=== PATIENT | female | born 1950 | race Caucasian/White ===

== ENCOUNTER → 2017-12-10 | Outpatient (CLI) | payer OTHER ==
[2017-01-28 20:16] VITALS: BP 130/62
[~2017-12-10] MED LIST: HYDR25TA9 PO; MECL25TA3 PO
--- NOTE | 2017-12-12 16:21 | RAD ---
DATE: December 10, 2017 EXAM: MAMMO LU SCREENING BILATERAL HISTORY: Screening study. COMPARISON: 2016 This study was interpreted with the benefit of Computerized Aided Detection (CAD). 2-D digital mammographic views of both breasts were performed in the CC and MLO projections. 3-D digital tomosynthesis images of both breasts were performed in the CC and MLO projections and reviewed on a computer workstation. FINDINGS: Breast Density: FATTY The breast parenchyma is primarily fatty replaced. Breast parenchyma level density A.. There are no dominant suspicious masses, suspicious microcalcifications or evidence of architectural distortion. IMPRESSION: No mammographic indicators for malignancy. BI-RADS CATEGORY: 1 NEGATIVE RECOMMENDED FOLLOW-UP: 12M 12 MONTH FOLLOW-UP PQRS compliance statement: Patient information was entered into a reminder system with a target due date December 11, 2018 for the next mammogram. Mammography is a sensitive method for finding small breast cancers, but it does not detect them all and is not a substitute for careful clinical examination. A negative mammogram does not negate a clinically suspicious finding and should not result in delay in biopsying a clinically suspicious abnormality. "Our facility is accredited by the [employer] Mammography Program." The patient's breast density may affect the ability of mammography to detect breast cancer. There are 4 categories of breast density, A, B, C and D. Breast density A means that most of the breast tissue is replaced with adipose tissue and therefore is not dense. Breast density B means that the breast tissue is mildly dense and scattered. Breast density C means that the breast tissue is heterogeneously dense. Breast density D means that the breast tissue is very dense. Breast densities especially C and D may decrease the sensitivity of mammography to detect breast cancer. Therefore, the patient may benefit from 3-D breast mammography (3D breast tomography) as a part of their screening mammogram. Insurance may or may not pay for this additional imaging. The patient's breast density based on today's mammogram is category A.
== END | disposition home or self-care (01) ==
LOC: MAMMO 08:30
PROVIDERS: ATTEND Internal Medicine
DX: Z12.31 Encounter for screening mammogram for malignant neoplasm of breast (principal); I10 Essential (primary) hypertension; Z86.73 Personal history of transient ischemic attack (TIA), and cerebral infarction without residual deficits; Z90.710 Acquired absence of both cervix and uterus
CPT/HCPCS: 77063; 77067

== ENCOUNTER 2018-06-04 12:33 | Inpatient (IN) | payer OTHER ==
[~2018-06-04] VITALS: Ht 152.4 cm; Wt 79.9 kg
[~2018-06-04 12:33] MED LIST changes: +HYDR-2145 PO; -HYDR25TA9 PO
[2018-06-04] MEDS ORDERED: ASPIRIN CHEWABLE 81 MG TABLET. PO ONE (13:15)
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
[2018-06-04 13:50] LABS: BASO % 1 % (0-3); EOS # 0.1 x10^3/uL (0.0-0.7); EOS % 2 % (0-3); HEMOGLOBIN 14.2 g/dL (12.0-15.5); LYMPH # 2.3 x10^3/uL (1.0-4.8); LYMPH % 31 % (24-48); MEAN CORPUSCULAR HEMOGLOBIN 31 pg (25-35); MEAN CORPUSCULAR HGB CONC 33 g/dL (31-37); MEAN CORPUSCULAR VOLUME 93 fL (79-100); MONO # 0.5 x10^3/uL (0.0-1.1); MONO % 7 % (0-9); NEUT # 4.4 x10^3uL (1.8-7.7); NEUT % 60 % (31-73); PLATELET COUNT 192 x10^3/uL (140-400); RED BLOOD COUNT 4.62 x10^6/uL (3.50-5.40); RED CELL DISTRIBUTION WIDTH 12.5 % (11.5-14.5); WHITE BLOOD COUNT 7.4 x10^3/uL (4.0-11.0)
[2018-06-04 13:59] LABS: CALCIUM 9.1 mg/dL (8.5-10.1); CREATININE 0.7 mg/dL (0.6-1.0); GFR 82.7; POTASSIUM 3.7 mmol/L (3.5-5.1)
[2018-06-04 14:02] LABS: PROTHROMBIN TIME PATIENT 13.3 SEC (11.7-14.0)
--- NOTE | 2018-06-04 14:03 | RAD ---
AP chest. HISTORY: Chest pain AP view was taken of the chest. Lungs are clear. There is no pneumothorax or pleural effusion. There is mild scoliosis. Heart is normal in size. IMPRESSION: 1. No acute infiltrates. Electronically signed by: Castro Kohli MD (06/04/2018 1:59 PM) [facility]
[2018-06-04 14:04] LABS: ALBUMIN/GLOBULIN RATIO 1.1 (1.0-1.7); MAGNESIUM 1.7 mg/dL (1.8-2.4); TOTAL BILIRUBIN 0.4 mg/dL (0.2-1.0); TOTAL PROTEIN 7.5 g/dL (6.4-8.2)
[2018-06-04] MEDS ORDERED: HEPARIN 25,000UTS/500ML PREMIX 500 ML IV PRN (14:15)
[2018-06-04] MEDS ORDERED: NITROGLYCERIN OINT 1 GM PACKET. TP ONE (14:15)
[2018-06-04] MEDS: HEPARIN for IV BOLUS 10,000 UNIT/10 ML VIAL. IV PRN ×2 (14:40→21:59)
[2018-06-04] MEDS ORDERED: IV NORMAL SALINE 1000ML BAG 1,000 ML IV SCH (14:57)
[2018-06-04] MEDS ORDERED: ONDANSETRON PF 4 MG/2 ML VIAL. IV PRN (15:00)
[2018-06-04] MEDS ORDERED: NITROGLYCERIN SUBLINGUAL 0.4 MG BOTTLE OF 25. SL PRN (15:00)
[2018-06-04] MEDS ORDERED: ACETAMINOPHEN 325 MG TABLET. PO PRN (15:00)
[2018-06-04] MEDS ORDERED: MORPHINE SULFATE 2 MG/ML VIAL. IV PRN (15:00)
[2018-06-04 15:21] VITALS: BP 167/84
[2018-06-04] MEDS ORDERED: METF100010 PO (16:35)
[2018-06-04] MEDS ORDERED: AMOX1TAB61 PO (16:35)
[2018-06-04] MEDS ORDERED: PRAV20TA2 PO (16:35)
[2018-06-04] MEDS ORDERED: LOSA1TAB22 PO (16:35)
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
[2018-06-04] MEDS ORDERED: DEXTROSE 50% 25 GM / 50ML DISP.SYRIN. IV PRN (16:45)
[2018-06-04] MEDS: INSULIN LISPRO 300 UNITS/3 ML INSULN.PEN. SQ SCH (17:00)
[2018-06-04] MEDS: LOSARTAN POTASSIUM 50 MG TABLET. PO SCH (17:00)
[2018-06-04] MEDS: hydroCHLOROthiazide 25 MG TABLET PO SCH (17:00)
--- NOTE | 2018-06-04 18:22 | EKG ---
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
[2018-06-04 19:16] VITALS: BP 138/73
[2018-06-04] MEDS: METOPROLOL TART IMMED RELEASE 25 MG TABLET. PO SCH (21:00)
[2018-06-04] MEDS: ATORVASTATIN CALCIUM 40 MG TABLET. PO SCH (21:00)
[2018-06-04] MEDS ORDERED: NON FORMULARY ITEM (Pravastatin Sodium 20 MG) PO SCH (21:00)
[2018-06-04] MEDS: AMOXICILLIN/K CLAV 875/125MG TABLET. PO SCH (21:00)
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
[2018-06-04 23:20] VITALS: BP 107/54
[2018-06-05] VITALS (13 sets, daily range): BP systolic 105–145; BP diastolic 52–72
--- NOTE | 2018-06-05 00:03 | EKG ---
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
--- NOTE | 2018-06-05 04:20 | NUR ---
I have reviewed the notes, assessment, and/or procedures performed by Gabi denney and concur with her documentation unless otherwise noted.
[2018-06-05 06:40] LABS: HEMATOCRIT 40.2 % (36.0-47.0); HEMOGLOBIN 13.1 g/dL (12.0-15.5); RED BLOOD COUNT 4.32 x10^6/uL (3.50-5.40); RED CELL DISTRIBUTION WIDTH 12.4 % (11.5-14.5); WHITE BLOOD COUNT 6.4 x10^3/uL (4.0-11.0)
[2018-06-05 07:04] LABS: CHOLESTEROL/HDL RATIO 4.2
--- NOTE | 2018-06-05 07:07 | EKG ---
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
[2018-06-05] MEDS: INSULIN LISPRO 300 UNITS/3 ML INSULN.PEN. SQ SCH ×3 (08:00→17:00)
[2018-06-05] MEDS: hydroCHLOROthiazide 25 MG TABLET PO SCH (08:04)
[2018-06-05] MEDS: AMOXICILLIN/K CLAV 875/125MG TABLET. PO SCH ×3 (08:05→21:22)
[2018-06-05] MEDS: LOSARTAN POTASSIUM 50 MG TABLET. PO SCH (08:07)
[2018-06-05] MEDS: METOPROLOL TART IMMED RELEASE 25 MG TABLET. PO SCH ×2 (08:08→21:23)
[2018-06-05] MEDS ORDERED: ANTI-COAG MONITOR BY PHARMACY. MC PRN (08:30)
[2018-06-05] MEDS ORDERED: NON FORMULARY ITEM (Losartan/Hydrochlorothiazide (Losartan-Hctz 100-25 Mg Tab) 1 TAB) PO SCH (09:00)
[2018-06-05] MEDS ORDERED: ONDANSETRON PF 4 MG/2 ML VIAL. IV PRN (09:15)
[2018-06-05] MEDS ORDERED: ACETAMINOPHEN 500 MG TABLET PO PRN (09:15)
--- NOTE | 2018-06-05 10:40 | PDOC ---
PROGRESS NOTES Chief Complaint Chief Complaint 1. Non-STEMI in the setting of severe stress: Differential diagnosis is stress- induced cardio myopathy versus plaque rupture due to underlying coronary disease History of Present Illness History of Present Illness NO Chest pain Multiple family members at bedside Plan for [facility] later in the morning No RN issues Trop peaks 0.9 ., normal VS Plan: await [facility] Vitals Vitals Vital Signs Date Time Temp Pulse Resp B/P (MAP) Pulse Ox O2 Delivery O2 Flow Rate FiO2 06/05/18 08:08 72 06/05/18 07:00 98.1 16 120/57 (78) 96 Room Air 98.1 Physical Exam General: Alert, Oriented X3, Cooperative, No acute distress Heart: Regular rate, Normal S1, Normal S2, No murmurs Lungs: Clear Abdomen: Normal bowel sounds, Soft, No tenderness Extremities: No clubbing, No cyanosis, No edema Skin: No rashes, No breakdown, No significant lesion Labs LABS Laboratory Tests Test 06/04/18 13:40 06/04/18 14:47 06/04/18 17:03 06/04/18 18:00 White Blood Count 7.4 x10^3/uL (4.0-11.0) Red Blood Count 4.62 x10^6/uL (3.50-5.40) Hemoglobin 14.2 g/dL (12.0-15.5) Hematocrit 43.0 % (36.0-47.0) Mean Corpuscular Volume 93 fL (79-100) Mean Corpuscular Hemoglobin 31 pg (25-35) Mean Corpuscular Hemoglobin Concent 33 g/dL (31-37) Red Cell Distribution Width 12.5 % (11.5-14.5) Platelet Count 192 x10^3/uL (140-400) Neutrophils (%) (Auto) 60 % (31-73) Lymphocytes (%) (Auto) 31 % (24-48) Monocytes (%) (Auto) 7 % (0-9) Eosinophils (%) (Auto) 2 % (0-3) Basophils (%) (Auto) 1 % (0-3) Neutrophils # (Auto) 4.4 x10^3uL (1.8-7.7) Lymphocytes # (Auto) 2.3 x10^3/uL (1.0-4.8) Monocytes # (Auto) 0.5 x10^3/uL (0.0-1.1) Eosinophils # (Auto) 0.1 x10^3/uL (0.0-0.7) Basophils # (Auto) 0.0 x10^3/uL (0.0-0.2) Prothrombin Time 13.3 SEC (11.7-14.0) Prothromb Time International Ratio 1.0 (0.8-1.1) Sodium Level 143 mmol/L (136-145) Potassium Level 3.7 mmol/L (3.5-5.1) Chloride Level 103 mmol/L (98-107) Carbon Dioxide Level 28 mmol/L (21-32) Anion Gap 12 (6-14) Blood Urea Nitrogen 17 mg/dL (7-20) Creatinine 0.7 mg/dL (0.6-1.0) Estimated GFR (Cockcroft-Gault) 82.7 BUN/Creatinine Ratio 24 (6-20) Glucose Level 99 mg/dL (70-99) Calcium Level 9.1 mg/dL (8.5-10.1) Magnesium Level 1.7 mg/dL (1.8-2.4) Total Bilirubin 0.4 mg/dL (0.2-1.0) Aspartate Amino Transf (AST/SGOT) 25 U/L (15-37) Alanine Aminotransferase (ALT/SGPT) 37 U/L (14-59) Alkaline Phosphatase 47 U/L (46-116) Troponin I Quantitative 1.108 ng/mL (0.000-0.055) 1.142 ng/mL (0.000-0.055) RO-Khh-Y-Type Natriuretic Peptide 1026 pg/mL (0-124) Total Protein 7.5 g/dL (6.4-8.2) Albumin 4.0 g/dL (3.4-5.0) Albumin/Globulin Ratio 1.1 (1.0-1.7) Glucose (Fingerstick) 93 mg/dL (70-99) 190 mg/dL (70-99) Test 06/04/18 20:40 06/04/18 20:50 06/05/18 00:10 06/05/18 06:15 Heparin Anti-Xa Act, Unfractionated 0.10 IU/mL (0.30-0.70) 0.22 IU/mL (0.30-0.70) Glucose (Fingerstick) 165 mg/dL (70-99) Troponin I Quantitative 0.938 ng/mL (0.000-0.055) 0.736 ng/mL (0.000-0.055) White Blood Count 6.4 x10^3/uL (4.0-11.0) Red Blood Count 4.32 x10^6/uL (3.50-5.40) Hemoglobin 13.1 g/dL (12.0-15.5) Hematocrit 40.2 % (36.0-47.0) Mean Corpuscular Volume 93 fL (79-100) Mean Corpuscular Hemoglobin 30 pg (25-35) Mean Corpuscular Hemoglobin Concent 33 g/dL (31-37) Red Cell Distribution Width 12.4 % (11.5-14.5) Platelet Count 175 x10^3/uL (140-400) Triglycerides Level 131 mg/dL (0-150) Cholesterol Level 175 mg/dL (0-200) LDL Cholesterol, Calculated 107 mg/dL (0-100) VLDL Cholesterol, Calculated 26 mg/dL (0-40) Non-HDL Cholesterol Calculated 133 mg/dL (0-129) HDL Cholesterol 42 mg/dL (40-60) Cholesterol/HDL Ratio 4.2 Test 06/05/18 07:53 Glucose (Fingerstick) 139 mg/dL (70-99) Review of Systems Review of Systems A 14 point ROS was completed with the following noted as positive: Other systems reviewed and negative. \CONSTITUTIONAL: No fever or chills EYES: No recent changes SKIN: No rash or itching CARDIOVASCULAR: No chest pain, syncope, palpitations, or edema RESPIRATORY: No SOB or cough GASTROINTESTINAL: No nausea, vomiting or abdominal pain NEUROLOGICAL: No headaches or weakness ENDOCRINE: No cold or heat intolerance GENITOURINARY: No urgency or frequency of urination MUSCULOSKELETAL: No back pain or joint pain LYMPHATICS: No enlarged lymph nodes PSYCHIATRIC: No anxiety or depression Assessment and Plan Assessmemt and Plan Problems Medical Problems: (1) Non-STEMI (non-ST elevated myocardial infarction) Status: Acute Comment Review of Relevant I have reviewed the following items dieter (where applicable) has been applied. Labs Laboratory Tests Test 06/04/18 13:40 06/04/18 14:47 06/04/18 17:03 06/04/18 18:00 White Blood Count 7.4 x10^3/uL (4.0-11.0) Red Blood Count 4.62 x10^6/uL (3.50-5.40) Hemoglobin 14.2 g/dL (12.0-15.5) Hematocrit 43.0 % (36.0-47.0) Mean Corpuscular Volume 93 fL (79-100) Mean Corpuscular Hemoglobin 31 pg (25-35) Mean Corpuscular Hemoglobin Concent 33 g/dL (31-37) Red Cell Distribution Width 12.5 % (11.5-14.5) Platelet Count 192 x10^3/uL (140-400) Neutrophils (%) (Auto) 60 % (31-73) Lymphocytes (%) (Auto) 31 % (24-48) Monocytes (%) (Auto) 7 % (0-9) Eosinophils (%) (Auto) 2 % (0-3) Basophils (%) (Auto) 1 % (0-3) Neutrophils # (Auto) 4.4 x10^3uL (1.8-7.7) Lymphocytes # (Auto) 2.3 x10^3/uL (1.0-4.8) Monocytes # (Auto) 0.5 x10^3/uL (0.0-1.1) Eosinophils # (Auto) 0.1 x10^3/uL (0.0-0.7) Basophils # (Auto) 0.0 x10^3/uL (0.0-0.2) Prothrombin Time 13.3 SEC (11.7-14.0) Prothromb Time International Ratio 1.0 (0.8-1.1) Sodium Level 143 mmol/L (136-145) Potassium Level 3.7 mmol/L (3.5-5.1) Chloride Level 103 mmol/L (98-107) Carbon Dioxide Level 28 mmol/L (21-32) Anion Gap 12 (6-14) Blood Urea Nitrogen 17 mg/dL (7-20) Creatinine 0.7 mg/dL (0.6-1.0) Estimated GFR (Cockcroft-Gault) 82.7 BUN/Creatinine Ratio 24 (6-20) Glucose Level 99 mg/dL (70-99) Calcium Level 9.1 mg/dL (8.5-10.1) Magnesium Level 1.7 mg/dL (1.8-2.4) Total Bilirubin 0.4 mg/dL (0.2-1.0) Aspartate Amino Transf (AST/SGOT) 25 U/L (15-37) Alanine Aminotransferase (ALT/SGPT) 37 U/L (14-59) Alkaline Phosphatase 47 U/L (46-116) Troponin I Quantitative 1.108 ng/mL (0.000-0.055) 1.142 ng/mL (0.000-0.055) IA-Sxj-M-Type Natriuretic Peptide 1026 pg/mL (0-124) Total Protein 7.5 g/dL (6.4-8.2) Albumin 4.0 g/dL (3.4-5.0) Albumin/Globulin Ratio 1.1 (1.0-1.7) Glucose (Fingerstick) 93 mg/dL (70-99) 190 mg/dL (70-99) Test 06/04/18 20:40 06/04/18 20:50 06/05/18 00:10 06/05/18 06:15 Heparin Anti-Xa Act, Unfractionated 0.10 IU/mL (0.30-0.70) 0.22 IU/mL (0.30-0.70) Glucose (Fingerstick) 165 mg/dL (70-99) Troponin I Quantitative 0.938 ng/mL (0.000-0.055) 0.736 ng/mL (0.000-0.055) White Blood Count 6.4 x10^3/uL (4.0-11.0) Red Blood Count 4.32 x10^6/uL (3.50-5.40) Hemoglobin 13.1 g/dL (12.0-15.5) Hematocrit 40.2 % (36.0-47.0) Mean Corpuscular Volume 93 fL (79-100) Mean Corpuscular Hemoglobin 30 pg (25-35) Mean Corpuscular Hemoglobin Concent 33 g/dL (31-37) Red Cell Distribution Width 12.4 % (11.5-14.5) Platelet Count 175 x10^3/uL (140-400) Triglycerides Level 131 mg/dL (0-150) Cholesterol Level 175 mg/dL (0-200) LDL Cholesterol, Calculated 107 mg/dL (0-100) VLDL Cholesterol, Calculated 26 mg/dL (0-40) Non-HDL Cholesterol Calculated 133 mg/dL (0-129) HDL Cholesterol 42 mg/dL (40-60) Cholesterol/HDL Ratio 4.2 Test 06/05/18 07:53 Glucose (Fingerstick) 139 mg/dL (70-99) Laboratory Tests Test 06/04/18 13:40 06/04/18 14:47 06/04/18 17:03 06/04/18 18:00 White Blood Count 7.4 x10^3/uL (4.0-11.0) Red Blood Count 4.62 x10^6/uL (3.50-5.40) Hemoglobin 14.2 g/dL (12.0-15.5) Hematocrit 43.0 % (36.0-47.0) Mean Corpuscular Volume 93 fL (79-100) Mean Corpuscular Hemoglobin 31 pg (25-35) Mean Corpuscular Hemoglobin Concent 33 g/dL (31-37) Red Cell Distribution Width 12.5 % (11.5-14.5) Platelet Count 192 x10^3/uL (140-400) Neutrophils (%) (Auto) 60 % (31-73) Lymphocytes (%) (Auto) 31 % (24-48) Monocytes (%) (Auto) 7 % (0-9) Eosinophils (%) (Auto) 2 % (0-3) Basophils (%) (Auto) 1 % (0-3) Neutrophils # (Auto) 4.4 x10^3uL (1.8-7.7) Lymphocytes # (Auto) 2.3 x10^3/uL (1.0-4.8) Monocytes # (Auto) 0.5 x10^3/uL (0.0-1.1) Eosinophils # (Auto) 0.1 x10^3/uL (0.0-0.7) Basophils # (Auto) 0.0 x10^3/uL (0.0-0.2) Prothrombin Time 13.3 SEC (11.7-14.0) Prothromb Time International Ratio 1.0 (0.8-1.1) Sodium Level 143 mmol/L (136-145) Potassium Level 3.7 mmol/L (3.5-5.1) Chloride Level 103 mmol/L (98-107) Carbon Dioxide Level 28 mmol/L (21-32) Anion Gap 12 (6-14) Blood Urea Nitrogen 17 mg/dL (7-20) Creatinine 0.7 mg/dL (0.6-1.0) Estimated GFR (Cockcroft-Gault) 82.7 BUN/Creatinine Ratio 24 (6-20) Glucose Level 99 mg/dL (70-99) Calcium Level 9.1 mg/dL (8.5-10.1) Magnesium Level 1.7 mg/dL (1.8-2.4) Total Bilirubin 0.4 mg/dL (0.2-1.0) Aspartate Amino Transf (AST/SGOT) 25 U/L (15-37) Alanine Aminotransferase (ALT/SGPT) 37 U/L (14-59) Alkaline Phosphatase 47 U/L (46-116) Troponin I Quantitative 1.108 ng/mL (0.000-0.055) 1.142 ng/mL (0.000-0.055) HD-Mqa-R-Type Natriuretic Peptide 1026 pg/mL (0-124) Total Protein 7.5 g/dL (6.4-8.2) Albumin 4.0 g/dL (3.4-5.0) Albumin/Globulin Ratio 1.1 (1.0-1.7) Glucose (Fingerstick) 93 mg/dL (70-99) 190 mg/dL (70-99) Test 06/04/18 20:40 06/04/18 20:50 06/05/18 00:10 06/05/18 06:15 Heparin Anti-Xa Act, Unfractionated 0.10 IU/mL (0.30-0.70) 0.22 IU/mL (0.30-0.70) Glucose (Fingerstick) 165 mg/dL (70-99) Troponin I Quantitative 0.938 ng/mL (0.000-0.055) 0.736 ng/mL (0.000-0.055) White Blood Count 6.4 x10^3/uL (4.0-11.0) Red Blood Count 4.32 x10^6/uL (3.50-5.40) Hemoglobin 13.1 g/dL (12.0-15.5) Hematocrit 40.2 % (36.0-47.0) Mean Corpuscular Volume 93 fL (79-100) Mean Corpuscular Hemoglobin 30 pg (25-35) Mean Corpuscular Hemoglobin Concent 33 g/dL (31-37) Red Cell Distribution Width 12.4 % (11.5-14.5) Platelet Count 175 x10^3/uL (140-400) Triglycerides Level 131 mg/dL (0-150) Cholesterol Level 175 mg/dL (0-200) LDL Cholesterol, Calculated 107 mg/dL (0-100) VLDL Cholesterol, Calculated 26 mg/dL (0-40) Non-HDL Cholesterol Calculated 133 mg/dL (0-129) HDL Cholesterol 42 mg/dL (40-60) Cholesterol/HDL Ratio 4.2 Test 06/05/18 07:53 Glucose (Fingerstick) 139 mg/dL (70-99) Medications Current Medications Aspirin (Children'S Aspirin) 324 mg 1X ONCE PO Last administered on 06/04/18at 14:07; Start 06/04/18 at 13:15; Stop 06/04/18 at 13:18; Status DC Heparin Sodium/ Dextrose 500 ml @ 19.3 mls/hr CONT PRN IV SEE I/O RECORD Last administered on 06/04/18at 14:42; Start 06/04/18 at 14:15 Heparin Sodium (Porcine) (Heparin Sodium) 2,000 unit PRN Q6HRS PRN IV FOR UFH LEVEL LESS THAN 0.2 Last administered on 06/04/18at 21:59; Start 06/04/18 at 14: 15 Nitroglycerin (Nitro-Bid Oint) 1 inch 1X ONCE TP ; Start 06/04/18 at 14:15; Stop 06/04/18 at 14:18; Status DC Ondansetron HCl (Zofran) 4 mg PRN Q8HRS PRN IV NAUSEA/VOMITING; Start 06/04/18 at 15:00; Stop 06/05/18 at 09:14; Status DC Morphine Sulfate (Morphine Sulfate) 2 mg PRN Q2HR PRN IV PAIN; Start 06/04/18 at 15:00; Stop 06/05/18 at 14:59 Sodium Chloride 1,000 ml @ 100 mls/hr Q10H IV ; Start 06/04/18 at 14:57; Stop 06/04/18 at 16:28; Status DC Acetaminophen (Tylenol) 650 mg PRN Q4HRS PRN PO FEVER Last administered on 06/05at 10:28; Start 06/04/18 at 15:00; Stop 06/05/18 at 14:59 Nitroglycerin (Nitrostat) 0.4 mg PRN Q5MIN PRN SL CHEST PAIN; Start 06/04/18 at 15:00; Stop 06/05/18 at 14:59 Atorvastatin Calcium (Lipitor) 40 mg QHS PO Last administered on 06/04/18at 21: 00; Start 06/04/18 at 21:00 Metoprolol Tartrate (Lopressor) 25 mg BID PO Last administered on 06/05/18at 08: 08; Start 06/04/18 at 21:00 Insulin Human Lispro (HumaLOG) 0-5 UNITS TIDWMEALS SQ ; Start 06/04/18 at 17:00 Dextrose (Dextrose 50%-Water Syringe) 12.5 gm PRN Q15MIN PRN IV SEE COMMENTS; Start 06/04/18 at 16:45 Amoxicillin/ Clavulanate Potassium (Augmentin 875/ 125mg) 1 tab BID PO Last administered on 06/04/18at 21:00; Start 06/04/18 at 21:00 Non-Formulary Medication (Losartan/ Hydrochlorothiazide (Losartan-Hctz 100-25 Mg Tab)) 1 tab DAILY PO ; Start 06/05/18 at 09:00; Status UNV Non-Formulary Medication (Pravastatin Sodium ) 20 mg HS PO ; Start 06/04/18 at 21:00; Status UNV Losartan Potassium (Cozaar) 100 mg DAILY PO Last administered on 06/05/18at 08: 07; Start 06/04/18 at 17:00 Hydrochlorothiazide (Hydrodiuril) 25 mg DAILY PO Last administered on at 08:04; Start 06/04/18 at 17:00 Info (Anti-Coagulation Monitoring By Pharmacy) 1 each PRN DAILY PRN MC SEE COMMENTS; Start 06/05/18 at 08:30 Ondansetron HCl (Zofran) 4 mg PRN Q6HRS PRN IV NAUSEA/VOMITING; Start 06/05/18 at 09:15 Acetaminophen (Tylenol) 500 mg PRN Q6HRS PRN PO MILD PAIN / TEMP; Start at 09:15 Active Scripts Active Reported Augmentin 875-125 Tablet (Amoxicillin/Potassium Clav) 1 Each Tablet 1 Tab PO BID Pravastatin Sodium 20 Mg Tablet 20 Mg PO HS Metformin Hcl Er (Metformin Hcl) 1,000 Mg Tab.er.24 1,000 Mg PO BIDWMEALS Losartan-Hctz 100-25 Mg Tab (Losartan/Hydrochlorothiazide) 1 Each Tablet 1 Tab PO DAILY Vitals/I & O Vital Sign - Last 24 Hours 06/04/18 06/04/18 06/04/18 06/04/18 12:33 13:00 13:30 14:00 Temp 98.2 98.2 Pulse 66 72 76 72 Resp 12 14 27 23 B/P (MAP) 160/89 (112) 160/89 (112) 124/85 (98) 125/63 (83) Pulse Ox 99 99 98 98 O2 Delivery Room Air Room Air Room Air Room Air 06/04/18 06/04/18 06/04/18 06/04/18 14:45 15:21 16:19 19:16 Temp 97.8 98.0 97.8 98.0 Pulse 74 20 80 Resp 26 18 20 B/P (MAP) 154/82 (106) 167/84 (111) 138/73 (94) Pulse Ox 98 96 98 O2 Delivery Room Air Room Air Room Air Room Air 06/04/18 06/04/18 06/04/18 06/05/18 19:30 21:00 23:20 03:40 Temp 97.7 97.8 97.7 97.8 Pulse 80 63 66 Resp 20 18 B/P (MAP) 138/73 107/54 (71) 110/58 (75) Pulse Ox 98 96 O2 Delivery Room Air Room Air Room Air 06/05/18 06/05/18 06/05/18 07:00 08:07 08:08 Temp 98.1 98.1 Pulse 70 71 72 Resp 16 B/P (MAP) 120/57 (78) Pulse Ox 96 O2 Delivery Room Air Intake and Output 3/10/19 3/10/19 3/11/19 14:59 22:59 06:59 Intake Total 800 ml 240 ml Output Total 800 ml 150 ml Balance 0 ml 90 ml IGOR THORPE MD Jun 05, 2018 10:40
[2018-06-05] MEDS ORDERED: LIDOCAINE 1% PF 2 ML VIAL. ONE (11:23)
[2018-06-05] MEDS ORDERED: IOHEXOL 300 MG/ML 100ML VIAL. ONE (11:23)
[2018-06-05] MEDS ORDERED: fentaNYL PF VIAL 100 MCG/2 ML VIAL ONE (13:03)
[2018-06-05] MEDS ORDERED: VERAPAMIL 5 MG/2 ML VIAL. ONE (13:04)
[2018-06-05] MEDS ORDERED: HEPARIN for IV BOLUS 10,000 UNIT/10 ML VIAL. ONE (13:04)
[2018-06-05] MEDS ORDERED: NITROGLYCERIN 200 MCG/2 ML SYRINGE FOR CATH/VASC LAB. ONE (13:04)
[2018-06-05] MEDS ORDERED: MIDAZOLAM HCL/PF 2 MG/2 ML VIAL. ONE (13:04)
[2018-06-05] MEDS ORDERED: LIDOCAINE 1% PF 2 ML VIAL. INJ ONE (13:45)
[2018-06-05] MEDS ORDERED: IOHEXOL 300 MG/ML 100ML VIAL. IART ONE (13:45)
[2018-06-05] MEDS ORDERED: fentaNYL PF VIAL 100 MCG/2 ML VIAL IV ONE (13:45)
[2018-06-05] MEDS ORDERED: MIDAZOLAM HCL/PF 2 MG/2 ML VIAL. IV ONE (13:45)
--- NOTE | 2018-06-05 13:59 | NUR ---
SS following for discharge planning. SS reviewed pt chart. Pt is from home with spouse and is currently on room air. No discharge needs noted at this time. SS will continue to follow for pending discharge needs.
[2018-06-05] MEDS ORDERED: CONTRAST GIVEN. MC PRN (14:00)
[2018-06-05] MEDS ORDERED: HEPARIN for IV BOLUS 10,000 UNIT/10 ML VIAL. IART ONE (14:15)
[2018-06-05] MEDS ORDERED: VERAPAMIL 5 MG/2 ML VIAL. IART ONE (14:15)
[2018-06-05] MEDS ORDERED: NITROGLYCERIN 200 MCG/2 ML SYRINGE FOR CATH/VASC LAB. IART ONE (14:15)
--- NOTE | 2018-06-05 14:18 | CARD ---
MR#: [id number] Date of Study: 06/05/2018 Ordering Physician: JOSELIN JOHNSON, Referring Physician: GABRIEL SAHU Tech: ZAKIYA DAVENPORT RTR APPROVED REPORT Technologist: ZAKIYA DAVENPORT RTR Nurse: Danay Oakley R.N. Procedure(s) performed: MODERATE SEDATION TIME: 30 MINUTES LHC, Coronary angiography, Left ventriculogram HISTORY : The patient is a 68 year-old female with a history of . INDICATION The indication(s) include : non-STEMI . [facility] Clinical Frailty Scale [facility] Clinical Frailty Scale: Vulnerable Heart Failure Heart Failure: Yes If Yes, Newly Diagnosed: Yes If Yes, HF Type: Diastolic Systolic If Yes, NYHA Class: Class II CASE TECHNIQUE During this case, Fluoroscopy and low osmolar contrast were used for imaging. PROCEDURE NARRATIVE INFORMED CONSENT: After explaining the risks and benefits of the procedure and alternatives, informed consent was obtained. The patient was brought electively to the cardiac catheterization lab. A timeout was performed confi rming the patient's name, date of , procedure, and site of procedure. All necessary personnel w ere wearing the appropriate protective equipment and radiation monitor devices. (See nursing notes for medications administered). ACCESS: The right wrist was sterilely prepped and draped in the usual fashion. The right wrist was infiltrat ed with 1 mL of 2% lidocaine for subcutaneous anesthesia. A 6 [place] Terumo glide sheath was inserte d into the right radial artery without difficulty. CORONARY ANGIOGRAPHY: Right and left coronary angiography was performed using a 6Fr TIG 4.0 catheter. Left ventricular en d diastolic pressure was obtained with a TIG catheter and pullback was performed after left ventricul ography. All catheter exchanges and advancements were performed over a guidewire. CLOSURE: At case completion the right radial sheath was removed and a Terumo radial band was applied with 13 m l of air. COMPLICATIONS: The patient tolerated the procedure well and there were no immediate complications. FINDINGS: HEMODYNAMICS: LVEDP 10 mm Hg No gradient on LV to aortic pullback. AO: 120/80 LEFT VENTRICULOGRAM: EF 45% Anterobasal: Normal. Anterolateral: Severe hypokinesis. Apical: Normal Diaphragmatic: Normal Posterobasal: Normal CORONARY ANGIOGRAPHY: LM is a large caliber vessel with normal angiographic appearance. LAD is a small to moderaet caliber vessel with a mid 30% stenosis. D1 is a small caliber vessel with an ostial 40% stenosis. LCx is a small caliber non-dominant vessel with normal angiographic appearance. OM1 is a small caliber vessel with a proximal 60% stenosis. RCA is a large caliber dominant vessel with mild luminal irregularities. RPDA and RPL are moderate caliber vessels with mild luminal irregularities. Conclusion 1. Normal left sided filling pressures. 2. Mild LV dysfunction. EF 45% (Suggestive either of midventricular takatsubo variant versus isolated stress induced plaque rupture in a small branch OM1) 3. One vessel CAD. Recommendations Aggressive Medical Therapy Signed by : Joselin Johnson, Electronically Approved : 06/05/2018 14:17:46
[2018-06-05] MEDS ORDERED: NITROGLYCERIN SUBLINGUAL 0.4 MG BOTTLE OF 25. SL PRN (15:30)
[2018-06-05] MEDS ORDERED: 0.9 % SODIUM CHLORIDE 10 ML DISP.SYRIN. IV PRN (15:30)
--- NOTE | 2018-06-05 15:31 | PDOC ---
MODERATE SEDATION ASSESSMENT RISKS/ALTERNATIVES Risks/Alternatives Risks and alternatives of this type of sedation and procedure discussed with: RISK/ALTERNATIVES: Patient H & P ON CHART H & P H & P on chart and reviewed for co-morbid conditions and appropriate labs. H&P ON CHART: Yes STATUS PREG STATUS ASSESSED: N/A MEDS/ALLERGIES REVIEWED Meds/Allergies Reviewed Medications and Allergies including time and route of recently administered narcotics and sedatives. MEDS/ALLERGIES REVIEWED: Yes ASA RATING ASA RATING: II AIRWAY ASSESSMENT Airway Assessment Airway patency, oral function limitations, presence of caps, crowns, dentures, partials, and ability to extend neck assessed. AIRWAY ASSESSMENT: Yes MALLAMPATI SCORE MALLAMPATI SCORE: II PRE-SEDATION ASSESSMENT PRE-SEDATION ASSESSMENT: Yes (late entry) JOSELIN BURGESS MD Jun 05, 2018 15:31
[2018-06-05] MEDS: ASPIRIN ENTERIC COATED 81 MG TABLET.DR. PO SCH (17:02)
--- NOTE | 2018-06-05 18:08 | NUR ---
Nursing: TR band removed. Clear dressing applied. Armboard in place. Post cardiac cath teaching verbal and written. Patient verbalized understanding.
[2018-06-05] MEDS: ATORVASTATIN CALCIUM 40 MG TABLET. PO SCH (21:22)
[2018-06-06 03:43] VITALS: BP 122/58
[2018-06-06 07:00] VITALS: BP 146/106
[2018-06-06] MEDS: INSULIN LISPRO 300 UNITS/3 ML INSULN.PEN. SQ SCH ×2 (08:00→12:00)
[2018-06-06] MEDS: hydroCHLOROthiazide 25 MG TABLET PO SCH (08:33)
[2018-06-06] MEDS: ASPIRIN ENTERIC COATED 81 MG TABLET.DR. PO SCH (08:33)
[2018-06-06] MEDS: AMOXICILLIN/K CLAV 875/125MG TABLET. PO SCH (08:35)
[2018-06-06] MEDS: LOSARTAN POTASSIUM 50 MG TABLET. PO SCH (08:35)
[2018-06-06] MEDS: METOPROLOL TART IMMED RELEASE 25 MG TABLET. PO SCH (08:36)
[2018-06-06 08:41] VITALS: BP 135/60
[2018-06-06] MEDS ORDERED: ASPI-612 PO (10:43)
[2018-06-06] MEDS ORDERED: NITR0.4T SL (10:43)
[2018-06-06] MEDS ORDERED: ATOR40TA59 PO (10:43)
[2018-06-06] MEDS ORDERED: METO25TA4 PO (10:43)
--- NOTE | 2018-06-06 10:46 | PDOC3 ---
Discharge Summary Visit Information Date of Admission: Jun 04, 2018 Date of Discharge: Jun 06, 2018 Admitting Diagnosis Comment: 1. Non-STEMI in the setting of severe stress: CAD status post [facility], there is vessel disease but medical management for now Final Diagnosis Problems Medical Problems: (1) Non-STEMI (non-ST elevated myocardial infarction) Status: Acute Brief Hospital Course Allergies Allergies Coded Allergies Type Severity Reaction Last Updated Verified prednisone Adverse Reaction Intermediate Urinary bleeding 06/04/18 Yes Vital Signs Vital Signs Date Time Temp Pulse Resp B/P (MAP) Pulse Ox O2 Delivery O2 Flow Rate FiO2 06/06/18 08:41 135/60 (85) 06/06/18 08:36 66 06/06/18 08:00 Room Air 06/06/18 07:00 98.1 18 95 98.1 06/05/18 14:08 2.0 Lab Results Laboratory Tests Test 06/04/18 13:40 06/04/18 14:47 06/04/18 17:03 06/04/18 18:00 White Blood Count 7.4 x10^3/uL (4.0-11.0) Red Blood Count 4.62 x10^6/uL (3.50-5.40) Hemoglobin 14.2 g/dL (12.0-15.5) Hematocrit 43.0 % (36.0-47.0) Mean Corpuscular Volume 93 fL (79-100) Mean Corpuscular Hemoglobin 31 pg (25-35) Mean Corpuscular Hemoglobin Concent 33 g/dL (31-37) Red Cell Distribution Width 12.5 % (11.5-14.5) Platelet Count 192 x10^3/uL (140-400) Neutrophils (%) (Auto) 60 % (31-73) Lymphocytes (%) (Auto) 31 % (24-48) Monocytes (%) (Auto) 7 % (0-9) Eosinophils (%) (Auto) 2 % (0-3) Basophils (%) (Auto) 1 % (0-3) Neutrophils # (Auto) 4.4 x10^3uL (1.8-7.7) Lymphocytes # (Auto) 2.3 x10^3/uL (1.0-4.8) Monocytes # (Auto) 0.5 x10^3/uL (0.0-1.1) Eosinophils # (Auto) 0.1 x10^3/uL (0.0-0.7) Basophils # (Auto) 0.0 x10^3/uL (0.0-0.2) Prothrombin Time 13.3 SEC (11.7-14.0) Prothromb Time International Ratio 1.0 (0.8-1.1) Sodium Level 143 mmol/L (136-145) Potassium Level 3.7 mmol/L (3.5-5.1) Chloride Level 103 mmol/L (98-107) Carbon Dioxide Level 28 mmol/L (21-32) Anion Gap 12 (6-14) Blood Urea Nitrogen 17 mg/dL (7-20) Creatinine 0.7 mg/dL (0.6-1.0) Estimated GFR (Cockcroft-Gault) 82.7 BUN/Creatinine Ratio 24 (6-20) Glucose Level 99 mg/dL (70-99) Calcium Level 9.1 mg/dL (8.5-10.1) Magnesium Level 1.7 mg/dL (1.8-2.4) Total Bilirubin 0.4 mg/dL (0.2-1.0) Aspartate Amino Transf (AST/SGOT) 25 U/L (15-37) Alanine Aminotransferase (ALT/SGPT) 37 U/L (14-59) Alkaline Phosphatase 47 U/L (46-116) Troponin I Quantitative 1.108 ng/mL (0.000-0.055) 1.142 ng/mL (0.000-0.055) XZ-Nfw-Z-Type Natriuretic Peptide 1026 pg/mL (0-124) Total Protein 7.5 g/dL (6.4-8.2) Albumin 4.0 g/dL (3.4-5.0) Albumin/Globulin Ratio 1.1 (1.0-1.7) Glucose (Fingerstick) 93 mg/dL (70-99) 190 mg/dL (70-99) Test 06/04/18 20:40 06/04/18 20:50 06/05/18 00:10 06/05/18 06:15 Heparin Anti-Xa Act, Unfractionated 0.10 IU/mL (0.30-0.70) 0.22 IU/mL (0.30-0.70) Glucose (Fingerstick) 165 mg/dL (70-99) Troponin I Quantitative 0.938 ng/mL (0.000-0.055) 0.736 ng/mL (0.000-0.055) White Blood Count 6.4 x10^3/uL (4.0-11.0) Red Blood Count 4.32 x10^6/uL (3.50-5.40) Hemoglobin 13.1 g/dL (12.0-15.5) Hematocrit 40.2 % (36.0-47.0) Mean Corpuscular Volume 93 fL (79-100) Mean Corpuscular Hemoglobin 30 pg (25-35) Mean Corpuscular Hemoglobin Concent 33 g/dL (31-37) Red Cell Distribution Width 12.4 % (11.5-14.5) Platelet Count 175 x10^3/uL (140-400) Triglycerides Level 131 mg/dL (0-150) Cholesterol Level 175 mg/dL (0-200) LDL Cholesterol, Calculated 107 mg/dL (0-100) VLDL Cholesterol, Calculated 26 mg/dL (0-40) Non-HDL Cholesterol Calculated 133 mg/dL (0-129) HDL Cholesterol 42 mg/dL (40-60) Cholesterol/HDL Ratio 4.2 Test 06/05/18 07:53 06/05/18 11:33 06/05/18 16:45 06/05/18 21:05 Glucose (Fingerstick) 139 mg/dL (70-99) 139 mg/dL (70-99) 194 mg/dL (70-99) 102 mg/dL (70-99) Test 06/06/18 08:01 Glucose (Fingerstick) 155 mg/dL (70-99) Laboratory Tests Test 06/05/18 11:33 06/05/18 16:45 06/05/18 21:05 06/06/18 08:01 Glucose (Fingerstick) 139 mg/dL (70-99) 194 mg/dL (70-99) 102 mg/dL (70-99) 155 mg/dL (70-99) Brief Hospital Course Ms. Montes De Oca is a 68 old white female admitted for N STEMI. LHC done showed vessel disease, 2 areas, but none that needed stenting and just medical management for now Rx on chart including aspirin Plavix beta daiana. No ROCK inhibitor though. Nitroglycerin when necessary. Patient seen and examined, DC time less than 30 minutes Consults performed cardiology Procedures performed [facility] 06/05/18 Discharge Information Condition at Discharge: Improved, Stable Follow Up: Weeks (cards as instructed) Disposition/Orders: D/C to Home Scheduled Amoxicillin/Potassium Clav (Augmentin 875-125 Tablet) 1 Each Tablet, 1 TAB PO BID for antibiotic, #14 (Reported) Entered as Reported by: XENA WEAVER on 06/04/181634 Last Taken: Unknown Dose on Unknown Date & Time Last Action: Continued on 06/04/181638 by XENA WEAVER Aspirin (Aspirin Ec) 81 Mg Tablet.dr, 81 MG PO [id number] for cad MDD 1, #60 Prescribed by: IGOR THORPE on 06/06/18 1043 Atorvastatin Calcium (Atorvastatin Calcium) 40 Mg Tablet, 40 MG PO QHS for lipids MDD 1, #30 Prescribed by: IGOR THORPE on 06/06/18 1043 Losartan/Hydrochlorothiazide (Losartan-Hctz 100-25 Mg Tab) 1 Each Tablet, 1 TAB PO DAILY for high blood pressure, #30 Ref 5 (Reported) Entered as Reported by: XENA WEAVER on 06/04/181634 Last Taken: Unknown Dose on Unknown Date & Time Last Action: Converted on 06/04/181638 by XENA WEAVER Metformin Hcl (Metformin Hcl Er) 1,000 Mg Tab.er.24, 1,000 MG PO BIDWMEALS for ANTI-DIABETIC, Ref 0 (Reported) Entered as Reported by: XENA WEAVER on 06/04/181634 Last Taken: Unknown Dose on Unknown Date & Time Last Action: New Order on 06/04/181634 by XENA WEAVER Metoprolol Tartrate (Metoprolol Tartrate) 25 Mg Tablet, 25 MG PO BID for CAD MDD 1, #60 Prescribed by: IGOR THORPE on 06/06/18 1043 Pravastatin Sodium (Pravastatin Sodium) 20 Mg Tablet, 20 MG PO HS for high cholesterol, (Reported) Entered as Reported by: XENA WEAVER on 06/04/181634 Last Taken: Unknown Dose on Unknown Date & Time Last Action: Converted on 06/04/181638 by XENA WEAVER Scheduled PRN Nitroglycerin (Nitrostat) 0.4 Mg Tab.subl, 0.4 MG SL PRN Q5MIN PRN for CHEST PAIN MDD 1, #60 Prescribed by: IGOR THORPE on 06/06/18 1043 IGOR THORPE MD Jun 06, 2018 10:46
[2018-06-06 11:24] VITALS: BP 142/66
--- NOTE | 2018-06-06 14:27 | NUR ---
Discharge Note: HARRY SY 2 [facility] Discharge instructions and discharge home medications reviewed with patient and a copy given. All questions have been answered and understanding verbalized. Right wrist looks great without bleeding. Patient wishes to keep armboard on another day. Patient also wishes to make her own cardiology appt. The following instructions and handouts were given: post catheterization instructions for wrist restrictions. Discontinued lines and drains: left forearm. Patient discharged to home with spouse via wheelchair.
[2018-06-06] MEDS ORDERED: LACTOBACILLUS RHAMNOSUS GG 1 CAPSULE. PO SCH (21:00)
== END 2018-06-06 14:15 | disposition home or self-care (01) | DRG 282 ==
LOC: ER 12:33 → 2 SOUTH 14:33
PROVIDERS: ADMIT Internal Medicine; ATTEND Internal Medicine
PROC: 4A023N7 Measurement of Cardiac Sampling and Pressure, Left Heart, Percutaneous Approach (ICD-10-PCS; principal; 2018-06-05)
PROC: B2151ZZ Fluoroscopy of Left Heart using Low Osmolar Contrast (ICD-10-PCS; 2018-06-05)
PROC: B2111ZZ Fluoroscopy of Multiple Coronary Arteries using Low Osmolar Contrast (ICD-10-PCS; 2018-06-05)
DX: I21.4 Non-ST elevation (NSTEMI) myocardial infarction (principal); E11.9 Type 2 diabetes mellitus without complications; E78.5 Hyperlipidemia, unspecified; F41.9 Anxiety disorder, unspecified; I10 Essential (primary) hypertension; J44.9 Chronic obstructive pulmonary disease, unspecified; I25.2 Old myocardial infarction; Z82.49 Family history of ischemic heart disease and other diseases of the circulatory system; Z86.73 Personal history of transient ischemic attack (TIA), and cerebral infarction without residual deficits; Z90.710 Acquired absence of both cervix and uterus; Z88.8 Allergy status to other drugs, medicaments and biological substances
CPT/HCPCS: 36415; 71045; 80053; 80061; 82962; 83735; 83880; 84484; 85025; 85027; 85520; 85610; 93005; 93458; 96360; 99152; 99153; C1769; C1892; J1644; J1815; J2250; J3010; J3490; Q9967; 99285-25

== ENCOUNTER → 2019-01-27 | Outpatient (CLI) | payer OTHER ==
[2018-10-24 08:49] VITALS: BP 163/77
[~2019-01-27] MED LIST changes: +AMOX1TAB61 PO; +ASPI-612 PO; +ATOR40TA59 PO; +DOXY100T PO; +LOSA1TAB22 PO; +METF100010 PO; +METO25TA4 PO; +NITR0.4T24 SL; +PRAV20TA2 PO
--- NOTE | 2019-01-29 09:22 | RAD ---
DATE: 01/27/2019. EXAM: MAMMO LU SCREENING BILATERAL. HISTORY: Routine mammographic screening. COMPARISON: 12/10/2017. This study was interpreted with the benefit of Computerized Aided Detection (CAD). FINDINGS: Breast Density: FATTY The breast parenchyma is primarily fatty replaced. Breast parenchyma level density A. A few scattered nodules are stable. There are no suspicious masses, microcalcifications or architectural distortion. The parenchymal pattern is stable. BI-RADS CATEGORY: 2 BENIGN FINDING(S). RECOMMENDED FOLLOW-UP: 12M 12 MONTH FOLLOW-UP. PQRS compliance statement: Patient information was entered into a reminder system with a target due date 01/28/2020 for the next mammogram. Mammography is a sensitive method for finding small breast cancers, but it does not detect them all and is not a substitute for careful clinical examination. A negative mammogram does not negate a clinically suspicious finding and should not result in delay in biopsying a clinically suspicious abnormality. "Our facility is accredited by the [employer] Mammography Program."
== END | disposition home or self-care (01) ==
LOC: MAMMO 08:30
PROVIDERS: ATTEND Internal Medicine
DX: Z12.31 Encounter for screening mammogram for malignant neoplasm of breast (principal); N63.20 Unspecified lump in the left breast, unspecified quadrant; N63.10 Unspecified lump in the right breast, unspecified quadrant
CPT/HCPCS: 77063; 77067

== ENCOUNTER → 2020-02-02 | Outpatient (CLI) | payer MEDICARE ==
[2018-10-24 08:49] VITALS: BP 163/77
[~2020-02-02] MED LIST changes: -ASPI-612 PO; +ASPI-886 PO; +MECL-75 PO; -MECL25TA3 PO
--- NOTE | 2020-02-05 14:38 | RAD ---
DATE: 02/02/2020 9:30 AM EXAM: MAMMO LU SCREENING BILATERAL HISTORY: Screening COMPARISON: 01/27/2019 Bilateral CC and MLO views of the breasts were performed. Bilateral breast tomosynthesis was performed in CC and MLO projections. This study was interpreted with the benefit of Computerized Aided Detection (CAD). FINDINGS: Breast Density: FATTY The Breast Parenchyma is primarily fatty replaced. Breast parenchyma level density A. No suspicious masses, microcalcifications or architectural distortion is present to suggest malignancy in either breast. The visualized axillae are unremarkable. IMPRESSION: No mammographic evidence of malignancy. BI-RADS CATEGORY: 1 NEGATIVE RECOMMENDED FOLLOW-UP: 12M 12 MONTH FOLLOW-UP Annual screening mammography is recommended, unless clinically indicated sooner based on symptoms or change in physical exam. PQRS compliance statement: Patient information was entered into a reminder system with a target due date for the next mammogram. Mammography is a sensitive method for finding small breast cancers, but it does not detect them all and is not a substitute for careful clinical examination. A negative mammogram does not negate a clinically suspicious finding and should not result in delay in biopsying a clinically suspicious abnormality. "Our facility is accredited by the [employer] Mammography Program."
== END ==
LOC: MAMMO 09:06
PROVIDERS: ATTEND Internal Medicine
DX: Z12.31 Encounter for screening mammogram for malignant neoplasm of breast (principal)
CPT/HCPCS: 77063; 77067

== ENCOUNTER 2020-02-03 12:38 | Emergency (ER) | payer MEDICARE ==
[~2020-02-03] VITALS: Ht 160 cm; Wt 85.0 kg
[2020-02-03] MEDS ORDERED: ONDANSETRON ODT 4 MG TAB.RAPDIS. PO ONE (14:00)
[2020-02-03 14:12] LABS: BASO # 0.1 x10^3/uL (0.0-0.2); BASO % 1 % (0-3); EOS # 0.2 x10^3/uL (0.0-0.7); EOS % 2 % (0-3); HEMATOCRIT 39.6 % (36.0-47.0); HEMOGLOBIN 13.4 g/dL (12.0-15.5); LYMPH # 2.1 x10^3/uL (1.0-4.8); LYMPH % 29 % (24-48); MEAN CORPUSCULAR HEMOGLOBIN 32 pg (25-35); MEAN CORPUSCULAR HGB CONC 34 g/dL (31-37); MEAN CORPUSCULAR VOLUME 93 fL (79-100); MONO # 0.4 x10^3/uL (0.0-1.1); MONO % 6 % (0-9); NEUT # 4.3 x10^3/uL (1.8-7.7); NEUT % 61 % (31-73); PLATELET COUNT 155 x10^3/uL (140-400); RED BLOOD COUNT 4.25 x10^6/uL (3.50-5.40); RED CELL DISTRIBUTION WIDTH 12.4 % (11.5-14.5)
[2020-02-03 14:23] LABS: CALCIUM 9.4 mg/dL (8.5-10.1); CREATININE 0.9 mg/dL (0.6-1.0); GFR 61.7; POTASSIUM 3.7 mmol/L (3.5-5.1)
[2020-02-03 14:29] LABS: DIRECT BILIRUBIN 0.1 mg/dL (0.0-0.2); TOTAL BILIRUBIN 0.3 mg/dL (0.2-1.0); TOTAL PROTEIN 6.6 g/dL (6.4-8.2)
--- NOTE | 2020-02-03 15:06 | ED.ADGEN ---
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 She states that she woke up this morning and had mildly blurred vision. She denies any loss of vision or double vision. 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 She is now concerned that she may have coronavirus. She believes that maybe she had a fever earlier because her temperature was 98 degrees so she took some Tylenol. She is having a sore throat and some mild chest pain. She also feels sick to her stomach. She denies any abdominal pain. She does not have any headaches. Review of Systems: Review of Systems: Complete ROS is negative unless otherwise documented in HPI Current Medications: Current Medications Medications (Trade) Dose Ordered Sig/Natalia Start Time Stop Time Status Last Admin Dose Admin Ondansetron HCl (Zofran Odt) 4 mg 1X ONCE 02/03/20 14:00 02/03/20 14:01 DC 02/03/20 14:02 4 MG Allergies: Allergies: Allergies Coded Allergies Type Severity Reaction Last Updated Verified prednisone Adverse Reaction Intermediate Urinary bleeding 06/04/18 Yes Physical Exam: PE: General: Awake, alert, NAD. Well Nourished, well hydrated. Cooperative HEENT: Atraumatic, EOMI, PERRL, airway patent, moist oral mucosa Neck: Supple, trachea midline Respiratory: CTA bilaterally, normal effort, no wheezing/crackles CV: RRR, no murmur, cap refill <2 GI: Soft, nondistended, nontender, no masses MSK: No obvious deformities Skin: Warm, dry, intact Neuro: A&O x3, speech NL, sensory and motor grossly intact, no focal deficits Psych: Normal affect, normal mood, not suicidal or homicidal Current Patient Data: Labs: Laboratory Tests Test 02/03/20 14:05 02/03/20 16:50 White Blood Count 7.0 x10^3/uL (4.0-11.0) Red Blood Count 4.25 x10^6/uL (3.50-5.40) Hemoglobin 13.4 g/dL (12.0-15.5) Hematocrit 39.6 % (36.0-47.0) Mean Corpuscular Volume 93 fL (79-100) Mean Corpuscular Hemoglobin 32 pg (25-35) Mean Corpuscular Hemoglobin Concent 34 g/dL (31-37) Red Cell Distribution Width 12.4 % (11.5-14.5) Platelet Count 155 x10^3/uL (140-400) Neutrophils (%) (Auto) 61 % (31-73) Lymphocytes (%) (Auto) 29 % (24-48) Monocytes (%) (Auto) 6 % (0-9) Eosinophils (%) (Auto) 2 % (0-3) Basophils (%) (Auto) 1 % (0-3) Neutrophils # (Auto) 4.3 x10^3/uL (1.8-7.7) Lymphocytes # (Auto) 2.1 x10^3/uL (1.0-4.8) Monocytes # (Auto) 0.4 x10^3/uL (0.0-1.1) Eosinophils # (Auto) 0.2 x10^3/uL (0.0-0.7) Basophils # (Auto) 0.1 x10^3/uL (0.0-0.2) Sodium Level 140 mmol/L (136-145) Potassium Level 3.7 mmol/L (3.5-5.1) Chloride Level 103 mmol/L (98-107) Carbon Dioxide Level 29 mmol/L (21-32) Anion Gap 8 (6-14) Blood Urea Nitrogen 18 mg/dL (7-20) Creatinine 0.9 mg/dL (0.6-1.0) Estimated GFR (Cockcroft-Gault) 61.7 Glucose Level 146 mg/dL (70-99) H Calcium Level 9.4 mg/dL (8.5-10.1) Total Bilirubin 0.3 mg/dL (0.2-1.0) Direct Bilirubin 0.1 mg/dL (0.0-0.2) Aspartate Amino Transferase (AST) 23 U/L (15-37) Alanine Aminotransferase (ALT) 36 U/L (14-59) Alkaline Phosphatase 48 U/L (46-116) Troponin I Quantitative < 0.017 ng/mL (0.000-0.055) Total Protein 6.6 g/dL (6.4-8.2) Albumin 4.0 g/dL (3.4-5.0) Urine Color Yellow Urine Clarity Clear Urine pH 6.0 (<5.0-8.0) Urine Specific [place] 1.020 (1.000-1.030) Urine Protein Negative mg/dL (NEG-TRACE) Urine Glucose (UA) Negative mg/dL (NEG) Urine Ketones (Stick) Negative mg/dL (NEG) Urine Blood Negative (NEG) Urine Nitrite Negative (NEG) Urine Bilirubin Negative (NEG) Urine Urobilinogen Dipstick 0.2 mg/dL (0.2 mg/dL) Urine Leukocyte Esterase Negative (NEG) Urine RBC 0 /HPF (0-2) Urine WBC Occ /HPF (0-4) Urine Squamous Epithelial Cells Few /LPF Urine Bacteria 0 /HPF (0-FEW) Urine Mucus Mod /LPF Laboratory Tests 02/03/20 14:05 Laboratory Tests 02/03/20 14:05 Vital Signs: Vital Signs Date Time Temp Pulse Resp B/P (MAP) Pulse Ox O2 Delivery O2 Flow Rate FiO2 02/03/20 13:23 99.0 55 18 214/77 (122) 97 Room Air 99.0 EKG: EKG: [] Heart Score: Risk Factors: Risk Factors: DM, Current or recent (<one month) smoker, HTN, HLP, family history of CAD, obesity. Risk Scores: Score 0 - 3: 2.5% MACE over next 6 weeks - Discharge Home Score 4 - 6: 20.3% MACE over next 6 weeks - Admit for Clinical Observation Score 7 - 10: 72.7% MACE over next 6 weeks - Early Invasive Strategies Radiology/Procedures: Radiology/Procedures: [] Course & Med Decision Making: Course & Med Decision Making Pertinent Labs and Imaging studies reviewed. (See chart for details) Patient is 69-year-old female presents to the emergency room with vague complaints. Visual acuities were ordered. Lab work was ordered to evaluate for any cause of vague symptoms. She initially did have high blood pressure which improved with relaxation. She was swabbed for the coronavirus per her request. At this time patient is very well-appearing. She did mention chest pain and passing. She believes this is due to her mammogram she had yesterday. It is very atypical for cardiac chest pain. EKG is normal. Chest x-ray is nonconcerning. Troponin is negative. We discussed the importance of quarantining. Patient's test results and vitals while in the ED were fully reviewed and discussed with the patient. Patient is stable and at this time does not need admission to the hospital. We have discussed strict return precautions and the importance of following up with their Primary Care Physician. Patient stated understanding and was given an opportunity to ask any questions. Patient is in agreement with plan. Dragon Disclaimer: Dragalirio Disclaimer: This electronic medical record was generated, in whole or in part, using a voice recognition dictation system. Departure Departure Impression: Primary Impression: Chest pain Additional Impression: URI (upper respiratory infection) Disposition: 01 DC HOME SELF CARE/HOMELESS Condition: STABLE Referrals: HI PEREZ (PCP) Patient Instructions: Upper Respiratory Infection, Adult Problem Qualifiers ADONIS BATEMAN MD Feb 03, 2020 15:06
--- NOTE | 2020-02-03 15:25 | RAD ---
CHEST AP ONLY History: Reason: chest pain / Spl. Instructions: / History: Comparison: October 24, 2018 Findings: Mild left basilar linear atelectasis. No consolidation or pleural effusion. Normal heart size. No pneumothorax. Impression: 1. Mild left basilar linear atelectasis. Electronically signed by: Rigoberto Sanchez DO (02/03/2020 3:22 PM) [facility] [place]
[2020-02-03 17:01] VITALS: BP 178/78
[2020-02-03 17:06] LABS: BILIRUBIN,URINE NEGATIVE (NEG); CLARITY,URINE CLEAR; COLOR,URINE YELLOW; NITRITE,URINE NEGATIVE (NEG); PROTEIN,URINE NEGATIVE (NEG-TRACE); UROBILINOGEN,URINE 0.2 mg/dL (0.2 mg/dL)
[2020-02-03 17:33] LABS: BACTERIA,URINE 0 /HPF (0-FEW); RBC,URINE 0 /HPF (0-2); WBC,URINE OCC /HPF (0-4)
--- NOTE | 2020-02-03 18:09 | EKG ---
[facility] [address] [place] [address] Test Date: 2020-02-03 Test Time: 15:14:53 Pat Name: HARRY SY Department: Room: Gender: F Signals Intelligence Analyst: : [id number] Requested By: ADONIS BATEMAN Order Number: [id number] Reading MD: Measurements Intervals [place] Rate: 53 P: 67 RI: 172 QRS: 60 QRSD: 68 T: -106 QT: 426 QTc: 402 Interpretive Statements SINUS RHYTHM ST & T ABNORMALITY, CONSIDER INFERIOR ISCHEMIA OR LEFT VENTRICULAR STRAIN T ABNORMALITY IN ANTEROLATERAL LEADS ABNORMAL ECG RI6.01 No previous ECG available for comparison
--- NOTE | 2020-02-05 14:52 | NUR ---
IP: Notified pt of negative COVID test. Pt verbalized understanding.
== END 2020-02-03 17:52 | disposition home or self-care (01) ==
LOC: ER 12:38
DX: J06.9 Acute upper respiratory infection, unspecified (principal); R07.89 Other chest pain; H53.8 Other visual disturbances; R50.9 Fever, unspecified; J45.909 Unspecified asthma, uncomplicated; E11.9 Type 2 diabetes mellitus without complications; I10 Essential (primary) hypertension; I25.2 Old myocardial infarction; Z90.710 Acquired absence of both cervix and uterus; Z98.890 Other specified postprocedural states; Z88.8 Allergy status to other drugs, medicaments and biological substances
CPT/HCPCS: 36415; 71045; 80048; 80076; 81001; 84484; 85025; 93005; 99285; C9803; U0003

== ENCOUNTER 2020-05-24 09:43 | Emergency (ER) | payer MEDICARE ==
[~2020-05-24] VITALS: Ht 160 cm; Wt 80.0 kg
[2020-05-24 10:00] VITALS: BP 172/77
--- NOTE | 2020-05-24 10:11 | PHYS DOC ---
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 Patient states that the same symptoms she had when she was diagnosed with Covid in January 2020. 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 When asked what her worst symptom is she says "not being able to taste anything." Reports flu vaccine made her "cripple for six months." Flu vaccine up-to-date. Denies any associated fever, chills, chest pain or pressure, hemoptysis, leg swelling, sore throat, neck stiffness or rash. No history of asthma or COPD. Review of Systems: Review of Systems: Constitutional: Denies fever or chills. [] Eyes: Denies change in visual acuity. [] HENT: Denies nasal congestion or sore throat. [] Respiratory: Denies hemoptysis or increased work of breathing Cardiovascular: Denies chest pain or edema. [] GI: Denies abdominal pain, nausea, vomiting, bloody stools or diarrhea. [] : Denies dysuria. [] Musculoskeletal: Denies back pain or joint pain. [] Integument: Denies rash. [] Neurologic: Denies neck stiffness, focal weakness or sensory changes. [] Endocrine: Denies polyuria or polydipsia. [] Lymphatic: Denies swollen glands. [] Psychiatric: Denies depression or anxiety. [] Heart Score: Risk Factors: Risk Factors: DM, Current or recent (<one month) smoker, HTN, HLP, family history of CAD, obesity. Risk Scores: Score 0 - 3: 2.5% MACE over next 6 weeks - Discharge Home Score 4 - 6: 20.3% MACE over next 6 weeks - Admit for Clinical Observation Score 7 - 10: 72.7% MACE over next 6 weeks - Early Invasive Strategies Allergies: Allergies: Allergies Coded Allergies Type Severity Reaction Last Updated Verified prednisone Adverse Reaction Intermediate Urinary bleeding 06/04/18 Yes Physical Exam: PE: Constitutional: Well developed, well nourished, no acute distress, non-toxic appearance. HENT: Normocephalic, atraumatic, Eyes: EOMI, conjunctiva normal, no discharge. Neck: Normal range of motion, supple, Cardiovascular: S1/2 present, regular rhythm Lungs & Thorax: Speaking in full sentences, bilateral equal chest rise, no tachypnea or increased work of breathing Abdomen: soft, no tenderness, Skin: Warm, dry, no erythema, no rash. [] Back: No tenderness, no CVA tenderness. [] Extremities: No tenderness, no cyanosis, no lower extremity edema Neurologic: Alert and oriented X 3, normal motor function, normal sensory function, no focal deficits noted. [] Psychologic: Affect normal, judgement normal, mood normal. [] EKG: EKG: [] Radiology/Procedures: Radiology/Procedures: []IMAGING REPORT Signed PATIENT: HARRY SY LACCOUNT: [id number] : 1950 LOCATION: ER AGE: 69 SEX: F EXAM STATUS: REG ER ORD. PHYSICIAN: ADONIS BATEMAN MD REASON: chest pain PROCEDURE: CHEST AP ONLY CHEST AP ONLY History: Reason: chest pain / Spl. Instructions: / History: Comparison: October 24, 2018 Findings: Mild left basilar linear atelectasis. No consolidation or pleural effusion. Normal heart size. No pneumothorax. Impression: 1. Mild left basilar linear atelectasis. Electronically signed by: Rigoberto Sanchez DO (02/03/2020 3:22 PM) [facility] DICTATED and SIGNED BY: RIGOBERTO SANCHEZ DO DATE: 02/03/20 1522 Course & Med Decision Making: Course & Med Decision Making Pertinent Labs and Imaging studies reviewed. (See chart for details) COVID-19 CRITERIA: The patient was evaluated during the global COVID-19 pandemic, and that diagnosis was suspected/considered upon their initial presentation. Their evaluation, treatment and testing was consistent with current guidelines for patients who present with complaints or symptoms that may be related to COVID-19. Concern for PUI. Patient well-appearing, speaking in full sentences. In no respiratory distress. No unilateral leg swelling. HD stable with asymptomatic hypertension. 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 Does not feel like her dypsnea is significant or concerning (which fits her physical exam). Will discharge home with strict ED return precautions were given for shock symptoms, chest pain or increased work of breathing. Encouraged urgent outpatient follow-up with PMD. Life-threatening processes were considered but are low suspicion at this time, given history, physical exam and ED workup. Pt was educated on all prescription medications and adverse effects. All patient's questions were answered and pt was stable at time of discharge. Life/limb-threatening differential includes but is not limited to, foreign body, infection/sepsis, congestive heart failure or pulmonary edema, lung cancer int rathoracic mass, bronchoconstriction, asthma/COPD/lung disease exacerbation, pneumothorax or hemothorax, pulmonary emboli, autoimmune/neurologic disease or toxidrome, meningitis, encephalitis, intracranial hemorrhage, obstructive hydrocephaly, CVA, carbon monoxide poisoning, cerebral or cavernous venous thrombosis, hypertensive emergency, preeclampsia, giant cell arteritis, glauco ma, carotid or vertebral artery dissection, superior vena cava syndrome, infection, optic neuritis, or space-occupying lesions. I spoken with the patient and her caregivers. I explained the patient's condition, diagnoses and treatment plan based on the information available to me at this time. I have answered the patient and her caregiver's questions and addressed any concerns. The patient and her caregivers have a good understanding of patient's diagnosis, condition and treatment plan as can be expected at this point. Vital signs have been stable. Patient's condition is stable and appropriate for discharge from the emergency department. Patient will pursue further outpatient evaluation with primary care physician or other designated or consulting physician as outlined in the discharge instructions. The patient and/or caregivers are agreeable to this plan of care and follow-up instructions have been explained in detail. The patient and/or caregivers have received these instructions in written form and have expressed an understanding of the discharge instructions. The patient and/or caregivers are aware that any significant change of condition or worsening of symptoms should prompt immediate return to this or the closest emergency department or call to 911. Fletcher Disclaimer: Fletcher Disclaimer: This electronic medical record was generated, in whole or in part, using a voice recognition dictation system. Departure Departure Impression: Primary Impression: Person under investigation for COVID-19 Additional Impressions: Anosmia Ageusia Disposition: 01 DC HOME SELF CARE/HOMELESS Condition: STABLE Referrals: [facility] PEREZ (PCP) in 1 week for re-evaluation Patient Instructions: Cough, Adult, General Headache Without Cause Additional Instructions: Return to ED immediately if your oxygen level drops below 90% (purchase a pulse oximetry at a medical supply store), difficulties breathing including rapid breathing or increased work of breathing (skin sucking under ribs), chest pain or stroke-like symptoms (facial droop, speech changes, arm/leg weakness). You have been tested for or diagnosed with COVID-19. It is an infection caused by a new type of coronavirus. COVID-19 will cause cold-like or mild flu symptoms in most. It can cause more severe symptoms like problems breathing in some. There is no treatment for COVID-19. The body will clear the infection over time. Self-care will help to ease discomfort. Steps to Take: Self-Care Rest as needed. Healthy habits may help you feel better. Steps include: Choose healthy foods including fruits and vegetables. Drink water throughout the day. Get plenty of sleep each night. If you smoke, try to quit. It may ease breathing. Avoid alcohol. Keep Others Healthy The virus can spread to others. Droplets are released every time you sneeze or cough. The droplets can get into the mouth, nose, or eyes of people near you and lead to infection. To lower the chances of spreading COVID-19 to others: Stay at home until your doctor has said it is safe to leave. If you tested positive this will mean staying isolated until both of the following are true: At least 7 days have passed since the start of illness. You are free of fever for at least 72 hours without the use of medicine. During this time: - Avoid public areas, events, or transportation. Do not return to work or school until your doctor has said it is safe to do so. - Call ahead if you need to go to a medical center. Let them know you may have COVID-19. It will help them guide you where to go. They may also ask you to wear a facemask when you come to the office. - If you call for emergency medical services, let them know you may have COVID- 19. While at home: - Try to avoid close contact with others. Stay about 6 feet away. - If possible, spend most of your time in a separate room from others. - Use a face mask if you will be in close contact with others such as sharing a room or vehicle. - Have someone wipe down common surfaces in the home. Use household dining car waiter/waitress every day on areas like doorknobs, counters, or sinks. - Cough or sneeze into a tissue. Throw the tissue away right after use. If a tissue is not available, cough or sneeze into your elbow. - Wash your hands often. Wash them after sneezing or coughing. Use soap and water and wash for at least 20 seconds. Alcohol based hand coil cleaner can be used if soap and water is not available. - Do not prepare food for others. Avoid sharing personal items like forks, spoons, or toothbrushes. - Avoid close contact with pets while you are sick. There is no evidence of the virus passing to pets. This is a safety step until more is known about this virus. Isolation can be frustrating. Social interaction can help. Keep in touch with friends and family through phone and tech options. You can still interact with others in your home, just keep a safe distance of about 6 feet. Follow-up: Your doctors office will check in with you to see if there are any changes in your health. You may be asked to keep track of symptoms to share with them. They will also let you know when you are clear to be in public again. Problems to Look Out For: Contact your doctor if your recovery is not going as you expect. Get emergency care if you have problems such as: - Trouble breathing - Nonstop chest pain or pressure - Changes in awareness, confusion, or problems waking - Lips or face have bluish color - Worsening of symptoms If you think you have an emergency, call for emergency medical services right away. [facility] May 24, 2020 10:11
--- NOTE | 2020-05-24 11:04 | RAD ---
XR CHEST 1V INDICATION: cough . COMPARISON STUDY: 02/03/2020. FINDINGS: Lungs: Normal lung volume. No pulmonary mass or consolidation. The tracheobronchial tree and hilar st ructures are normal. Pleura: No pleural effusion or pneumothorax. Heart and Mediastinum: The cardiomediastinal silhouette is normal. The great vessels of the thorax ar e normal. Bones and Soft Tissues: The bones and soft tissues are within normal limits. IMPRESSION: No acute cardiopulmonary process. Electronically signed by: Sergio Adam MD (05/24/2020 11:02 AM) [id number]
[2020-05-24 11:19] LABS: INFLUENZA A PATIENT NEGATIVE (NEGATIVE); INFLUENZA B PATIENT NEGATIVE (NEGATIVE)
--- NOTE | 2020-05-26 09:02 | NUR ---
IP: Informed pt of negative COVID test. Pt verbalized understanding.
== END 2020-05-24 11:15 | disposition home or self-care (01) ==
LOC: ER 09:43
DX: R43.0 Anosmia (principal); Z20.822 Contact with and (suspected) exposure to COVID-19; R43.2 Parageusia; J45.909 Unspecified asthma, uncomplicated; E11.9 Type 2 diabetes mellitus without complications; I10 Essential (primary) hypertension; I25.2 Old myocardial infarction; I25.10 Atherosclerotic heart disease of native coronary artery without angina pectoris; Z88.5 Allergy status to narcotic agent
CPT/HCPCS: 71045; 87804; 99284; C9803; U0003

== ENCOUNTER → 2021-02-07 | Outpatient (CLI) | payer MEDICARE ==
--- NOTE | 2021-02-09 10:46 | RAD ---
BILATERAL DIGITAL SCREENING 2-D AND 3-D MAMMOGRAM INDICATION: Routine screening. COMPARISON: 02/02/2020, 11/09/2016 Interpretation was made using CAD. FINDINGS: Breast Density: The breasts are almost entirely fatty. RIGHT BREAST: No suspicious masses, calcifications or areas of architectural distortion are seen. LEFT BREAST: No suspicious masses, calcifications or areas of architectural distortion are seen. IMPRESSION: 1. No imaging evidence of malignancy. ASSESSMENT: BI-RADS 1: Negative. RECOMMENDATION: Routine annual screening mammogram. The facility will notify the patient of the results via mail. Patient information will be entered int o the mammography reminder system with a target recall date for the next mammogram. A reminder letter will be generated by the facility. Electronically signed by: Mert Riley MD (02/09/2021 10:44 AM) [id number]
== END ==
LOC: MAMMO 08:04
PROVIDERS: ATTEND Internal Medicine
DX: Z12.31 Encounter for screening mammogram for malignant neoplasm of breast (principal)
CPT/HCPCS: 77063; 77067